=== PATIENT | male | born 1990 | race Caucasian/White ===

== ENCOUNTER 2020-05-12 22:44 | Emergency (ER) | payer SELFPAY ==
--- NOTE | 2020-05-13 00:05 | ER Document Report ---
ED Medical Screen (RME) - General Chief Complaint: Suicidal Ideation Stated Complaint: IVC Time Seen by Provider: 05/13/20 00:01 Mode of Arrival: Medic Information source: Emergency Med Personnel Notes: 29-year-old male presented to ED for overdose of some type of drug. He had to be Narcan x2 by EMS at the scene. His girlfriend told him that he could have and according to the paperwork he told her he did not care if he . IVC paperwork was taken out to the early intervention school psychologist and was signed. He will get complete IVC work-up. He states he never said that and he did not say that he wanted to . I explained to him that he has been IVC at this time and that he will need to speak with the psych providers in the morning before he can go home. I have greeted and performed a rapid initial assessment of this patient. A comprehensive ED assessment and evaluation of the patient, analysis of test results and completion of medical decision making process will be conducted by an additional ED providers.
[2020-05-13 00:10] LABS: ABSOLUTE NEUT (AUTO) 14.4 10^3/uL (1.7-8.2); BASOPHILS % (AUTO) 0.1 % (0-2); EOSINOPHILS % (AUTO) 0.2 % (0-6); HEMATOCRIT 44.7 % (37.9-51.0); HEMOGLOBIN 15.2 g/dL (13.5-17.0); MEAN CORPUSCULAR HEMOGLOBIN 31.6 pg (27.0-33.4); MEAN CORPUSCULAR HGB CONC 33.9 g/dL (32.0-36.0); MEAN CORPUSCULAR VOLUME 93 fl (80-97); MONOCYTES % (AUTO) 6.2 % (3-13); PLATELET COUNT 329 10^3/uL (150-450); RED BLOOD COUNT 4.81 10^6/uL (4.35-5.55); SEGMENTED NEUTROPHILS % (AUTO) 87.5 % (42-78); TOTAL CELLS COUNTED % (AUTO) 100 %; WHITE BLOOD COUNT 16.4 10^3/uL (4.0-10.5)
[2020-05-13 00:32] LABS: ACETAMINOPHEN < 10 ug/mL (10-30); ALCOHOL < 10 mg/dL (NONE DETECTED); ALKALINE PHOSPHATASE 77 U/L (38-126); ANION GAP 10 (5-19); ASPARTATE AMINO TRANSFERASE 87 U/L (17-59); BILIRUBIN,DIRECT 0.2 mg/dL (0.0-0.4); BILIRUBIN,TOTAL 0.5 mg/dL (0.2-1.3); BLOOD UREA NITROGEN 17 mg/dL (7-20); CALCIUM 9.9 mg/dL (8.4-10.2); CARBON DIOXIDE 28 mmol/L (22-30); CHLORIDE 98 mmol/L (98-107); GLUCOSE 122 mg/dL (75-110); POTASSIUM 4.3 mmol/L (3.6-5.0); SALICYLATE < 1.0 mg/dL (2.0-20.0); TOTAL PROTEIN 8.7 g/dL (6.3-8.2)
[2020-05-13 00:37] LABS: APPEARANCE,URINE SLIGHTLY-CLOUDY; BILIRUBIN,URINE NEGATIVE (NEGATIVE); GLUCOSE, URINE NEGATIVE (NEGATIVE); KETONES,URINE TRACE mg/dL (NEGATIVE); LEUKOCYTE ESTERASE,URINE NEGATIVE (NEGATIVE); NITRITE,URINE NEGATIVE (NEGATIVE); PROTEIN,URINE 30 mg/dL (NEGATIVE); URINE SPECIFIC GRAVITY 1.023
[2020-05-13 00:38] LABS: COLOR,URINE YELLOW
[2020-05-13 00:51] LABS: URINE AMPHETAMINES SCREEN NEGATIVE; URINE BARBITURATES SCREEN NEGATIVE; URINE BENZODIAZEPINES SCREEN NEGATIVE; URINE COCAINE SCREEN NEGATIVE; URINE MARIJUANA (THC) SCREEN UNCONFIRMED POSITIVE; URINE METHADONE SCREEN NEGATIVE; URINE PHENCYCLIDINE SCREEN NEGATIVE
--- NOTE | 2020-05-13 02:07 | ER Document Report ---
ED Psych Disorder / Suicide - General Chief Complaint: Psych Problem Stated Complaint: IVC Time Seen by Provider: 05/13/20 00:01 Mode of Arrival: Medic - HPI Notes: 29-year-old male to the emergency department with EMS with complaints of possible intentional overdose. Apparently tonight he took a hit of heroin. He became acutely unresponsive and his girlfriend called EMS. He was given Narcan x2 doses and he improved. Apparently, when she told him that he could have , he said that he could care less if he . At that point there was concern for the patient safety so an IVC was placed on the patient by the wash helper. Here in the department the patient is stating that he is not suicidal and he did not say that he could care less if he . He states that he wants to go home and he cannot afford hospital bill at this time. He states currently he is not suicidal, homicidal, or having any hallucinations. - Related Data Allergies/Adverse Reactions: azithromycin [From Zithromax] Allergy (Verified 05/13/20 02:16) Past Medical History - General Information source: Patient, Emergency Med Personnel - Social History Smoking Status: Current Every Day Smoker Frequency of alcohol use: Occasional Drug Abuse: Heroin Family History: Reviewed & Not Pertinent Patient has homicidal ideation: No Review of Systems - Review of Systems Constitutional: denies: Chills, Fever EENT: No symptoms reported Cardiovascular: denies: Chest pain, Palpitations, Heart racing, Orthopnea, Dyspnea, Syncope, Dizziness, Lightheaded Respiratory: denies: Cough, Short of breath Gastrointestinal: denies: Abdominal pain, Diarrhea, Nausea, Vomiting Genitourinary: No symptoms reported Musculoskeletal: No symptoms reported Skin: No symptoms reported Hematologic/Lymphatic: No symptoms reported Neurological/Psychological: See HPI - Concern for possible left side. See HPI -: Yes All other systems reviewed and negative Physical Exam - Vital signs Vitals: Temp Pulse Resp BP Pulse Ox 98.6 F 120 H 20 141/85 H 99 05/13/20 02:30 05/13/20 02:30 05/13/20 02:30 05/13/20 02:30 05/13/20 02:30 Temp Pulse Resp BP Pulse Ox 98.2 F 84 18 138/69 H 99 05/13/20 05:41 05/13/20 05:41 05/13/20 05:41 05/13/20 05:41 05/13/20 05:41 Intake & Output 05/11/20 05/12/20 05/13/20 06:59 06:59 06:59 Weight 61.235 kg Weight/Height Weight 61.235 kg Height 5 ft 5 in Interpretation: Normal - Notes Notes: PHYSICAL EXAMINATION: GENERAL: Well-appearing, patient is tearful and anxious. Security is bedside. HEAD: Atraumatic, normocephalic. EYES: Pupils equal round and reactive to light, extraocular movements intact, sclera anicteric, conjunctiva are normal. ENT: nares patent, oropharynx clear without exudates. Moist mucous membranes. NECK: Normal range of motion, supple without lymphadenopathy LUNGS: Breath sounds clear to auscultation bilaterally and equal. No wheezes rales or rhonchi. HEART: Regular rate and rhythm without murmurs ABDOMEN: Soft, nontender, normoactive bowel sounds. No guarding, no rebound. No masses appreciated. EXTREMITIES: Normal range of motion, no pitting or edema. No cyanosis. NEUROLOGICAL: No focal neurological deficits. Moves all extremities spontaneously and on command. PSYCH: Patient is tearful and anxious. He expresses frustration over the IVC and states he wants to leave. He denies SI, HI, or hallucinations. Prior to my evaluation, the patient had been disruptive in the emergency department but after we had a lengthy conversation about how the IVC process works, patient is redirectable and understands what our next couple steps are. He does continue to maintain that he is not suicidal. SKIN: Warm, Dry, normal turgor, no rashes or lesions noted. Course - Re-evaluation Re-evalutation: 05/13/20 06:24 Patient has done well in the emergency department. He is medically cleared. We are pending the behavioral health team to see the patient for further eval uation. We will continue to monitor - Vital Signs Vital signs: Temp Pulse Resp BP Pulse Ox 98.2 F 84 18 138/69 H 99 05/13/20 05:41 05/13/20 05:41 05/13/20 05:41 05/13/20 05:41 05/13/20 05:41 - Laboratory Result Diagrams: 05/12/20 23:58 05/12/20 23:58 Laboratory results interpreted by me: 05/12/20 05/12/20 05/12/20 22:30 23:58 23:58 WBC 16.4 H Lymph % (Auto) 6.0 L Absolute Neuts (auto) 14.4 H Seg Neutrophils % 87.5 H Sodium 135.6 L Glucose 122 H AST 87 H ALT 129 H Total Protein 8.7 H Urine Protein 30 H Urine Ketones TRACE H Urine Urobilinogen 2.0 H Salicylates < 1.0 L Acetaminophen < 10 L Discharge - Discharge Clinical Impression: Drug overdose Qualifiers: Encounter type: initial encounter Injury intent: intentional self-harm Qualified Code(s): T50.902A - Poisoning by unspecified drugs, medicaments and biological substances, intentional self-harm, initial encounter Condition: Stable Disposition: PSYCH HOSP/UNIT
[2020-05-13] MEDS ORDERED: NICOTINE 14 MG/24 HR PATCH.TD24 TD ONE (02:29)
--- NOTE | 2020-05-13 07:25 | EKG REPORT ---
SEVERITY:- OTHERWISE NORMAL ECG - SINUS TACHYCARDIA : Confirmed by: Baltazar Means MD 13-May-2020 07:24:53
--- NOTE | 2020-05-13 12:59 | PSYCHOLOGICAL NOTE ---
Psych Note - Psych Note Date seen by psych provider: 05/13/20 Time seen by psych provider: 12:13 Psych Note: Collateral Information: From [id number] spoke to patient's girlfriend Vivian Cheatham ([phone]). She reported "for the past 2-3 months patient has either been on heroin or withdrawing." She reported "it's been up and down, up and down." She identified patient "is in denial, he denies he even does it." She denied any previous detoxification or substance abuse treatment. Girlfriend denied thinking patient wants to intentionally hurt/harm/kill self. She stated "the episode last night, I don't know, we were talking about supper, he said he was going to get a shower then we would order dinner, he went to the bathroom, I was on the phone with my girlfriend when I said to her he's been in the bathroom for a long time, I went to check on him, he would not answer and I could not get the door open, I pushed and pushed to finally get a crack and put my arm through, he was propped up against the door/laying on the floor, I could not feel a pulse, so I called 9-1-1." She further stated "once EMS arrived patient was , EMs had to pull him out of the bathroom, they gave him two doses of Narcan, conducted CPR, got a pulse/revived him and brought him back." Girlfriend acknowledged EMS found the drugs and syringe in the bathroom but patient kept denying use and didn't even remember how he got the drugs or that he even had it. She stated EMS recommended and encouraged going to the hospital but patient refused, they didn't take him, and they suggested girlfriend go to the [facility] for Involuntary Commitment which she did. She reported by the time she got back to the house from [facility]'s office patient was vomiting and already looking for more drugs. Girlfriend stated "on Thanksgiving she found needles, they had a discussion, patient said he was done, and now a little over a week later he has overdosed." She stated "he is in denial, at the end of the day he will go right back to the heroin, I don't think he has the will power to say no." She noted she and patient have been together for 4 years and it's just the two of them that reside together. She identified "prior to her meeting patient he had a drug problem, then did good for awhile, and is now an addict."
--- NOTE | 2020-05-13 19:55 | PSYCHOLOGICAL NOTE ---
Psych Note - Psych Note Date seen by psych provider: 05/13/20 Time seen by psych provider: 10:58 Psych Note: Reason for Consult: overdose [id number] Patient is a 29 year old male who was admitted to the ED via care support representative already on a 24 hour petition. Patient is guarded and unwilling to engage in evaluation. He minimizes behaviors leading to inpatient hospitalizations and denies all mental health symptoms. He denies suicidal ideation, plan, and intent. He states this is the first time he has ever used heroin. When confronted about being positive for THC, he states it must be second hand smoke because he does not use marijuana. Patient cannot recall events that took place last night. When asked about alcohol use patient states, rarely. Patient reports he lives with his girlfriend, but is unwilling to provide contact information. He presents paranoid and asks why clinician needs to contact her and states he is not providing information. He denies mental health history. Collateral was obtained by behavioral health team. Please refer to Nory Aquino note dated today, 05/13/2020. Patient was alert and oriented to self, person, place, time, but not the situation leading to ED. It is unclear if patient does not remember events or is simply unwilling to engage. Mood was guarded, paranoid, and irritable with congruent affect. He denies current suicidal and homicidal ideation, plan, and intent. Patient did not appear to be responding to internal stimuli as evidenced by fair eye contact and answering questions appropriately when addressed. Thought processes are linear and organized. Conversational speech was within normal limits for rate, tone and prosody. Intellectual abilities are estimated to be average. Insight, judgment and impulse control were poor as evidenced by minimizing substance use. Patient engages inappropriately. He does demonstrate future forward goal oriented thinking as he discusses financial worries about missing work and paying for his bills. Clinical Presentation: overdose IVC Criteria per [place] GS 122C Dangerous to others Within the relevant past the individual No has inflicted or attempted to inflict or threatened to inflict serious bodily harm on another AND No that there is a reasonable probability that this conduct will be repeated. OR No has acted in such a way as to create a substantial risk of serious bodily harm to another AND No that there is a reasonable probability that this conduct will be repeated. OR No has engaged in extreme destruction of property AND NO that there is a reasonable probability that this conduct will be repeated. Previous episodes of dangerousness to others, when applicable, may be considered when determining reasonable probability of future dangerous conduct. Clear, cogent, and convincing evidence that an individual has committed a homicide in the relevant past is prima facie evidence of dangerousness to others. Dangerous to self Within the relevant past the individual has done any of the following: acted in such a way as to show ALL of the following: Yes The individual would be unable without care, supervision, and the continued assistance of others not otherwise available, to exercise self- control, judgment, and discretion in the conduct of the individual's daily responsibilities and social relations or to satisfy the individual's need for nourishment, personal or medical care, chcf, or self-protection and safety. without appropriate treatment and detox, patient continues to be a risk to self. he overdosed yesterday, denies taking place, denies using any other times, and reportedly was seeking drugs when he became alert after narcan was administered. AND Yes There is a reasonable probability of the individual suffering serious physical debilitation within the near future unless adequate treatment is given. A showing of behavior that is grossly irrational, of actions that the individual is unable to control, of behavior that is grossly inappropriate to the situation, or of other evidence of severely impaired insight and judgment shall create a prima facie inference that the individual is unable to care for himself or herself. girlfriend reports finding needle on Thanksgiving and he stated he was done using, however was found using again a week later OR Yes has attempted suicide or threatened suicide While overdose on heroin appears to be an accident, patient is not willing to engage in evaluation and further history and information cannot be obtained. According to his significant other, he overdosed and Narcan had to be used. He then did not want to seek treatment and a petition was filed out by girl friend AND Yes that there is a reasonable probability of suicide unless adequate treatment is given Girl friend reports patient is in denial and has been using for years. After narcan was administered, he came alert and immediately began seeking drugs again; refused help and a petition was filled out; he is refusing to engage or be forth coming in evaluation and continues to minimize and leave out details of substance use OR No has mutilated himself or herself or attempted to mutilate himself or herself AND No that there is a reasonable probability of serious self-mutilation unless adequate treatment is given. NOTE: Previous episodes of dangerousness to self, when applicable, may be considered when determining reasonable probability of physical debilitation, suicide, or self-mutilation. Impression\plan: Patient has been put under a full IVC. He is a danger to himself. He was admitted due to a heroin overdose and continues to refuse to participate in evaluation. He is paranoid, guarded, and irritable. Patient reports this was the first time he used heroin, however collateral call reports otherwise. Patient was also positive for THC and when confronted, denies. With the toxicology report showing positive and patient denying, is evidence other information is being withheld. Without patients cooperation and honest in assessment, and after 3 separate attempts to engage, he remains a danger to himself. He reports he does not remember what took place last night, however it is unclear if his memory is impaired or this is another way to refuse to participate in the evaluation. Patients referral packet has been sent to [facility] for inpatient hospitalization and to assist with substance use and possible medication management in order to return to baseline. Dr. Shepard was consulted to care management of this patient; attending physicians in agreement with recommendations and disposition.
[2020-05-13 21:25] VITALS: BP 132/68
--- NOTE | 2020-05-13 21:47 | ER Document Report ---
Doctor's Note Notes: 05/13/20 21:52 Assumed care of patient from daytime nurse petitioner. Patient was unwilling to engage with our behavioral health team and was angry and paranoid with them. Given his behavior if they continue to worry that he was potentially a risk to himself. He was placed on full IVC. They were able to secure a bed for him at [place]. The police are here to help with transport him over. I rounded on the patient. He is pretty upset about the plan but I explained to him the way that the IVC works and that there is concerned that he might potentially hurt himself. He states that he does not feel like he is going to hurt himself and he just wants to go home. However, he does state he understands the plan. Dr. Roach rounded with me on this patient we both agree that he is stable for transfer.
--- NOTE | 2020-05-13 21:54 | ER Document Report ---
Doctor's Note Notes: 05/13/20 21:52 [place] enforcement is here to transfer patient to [place]. This MD went to the patient's bedside. He is alert and oriented and understands the plan as it is explained to them by MIA Rivera. He does not agree with the plan but does state that he appreciates MIA Deal being honest with him about what the plan is. Patient appears stable for transfer.
== END 2020-05-13 21:49 ==
LOC: ER 22:44
DX: Z04.6 Encounter for general psychiatric examination, requested by authority (principal); T40.1X2A Poisoning by heroin, intentional self-harm, initial encounter; F17.200 Nicotine dependence, unspecified, uncomplicated; Z88.1 Allergy status to other antibiotic agents
CPT/HCPCS: 36415; 80053; 80307; 81001; 85025; 93005; 93010; 99285